=== PATIENT | female | born 1950 | race Caucasian/White ===

== ENCOUNTER 2018-05-19 15:19 | Inpatient (IN) | payer MEDICARE, MEDICAID ==
[2018-05-19] MEDS ORDERED: NITROGLYCERIN 2% OINTMENT 1 GM PACKET TP ONE (15:30)
--- NOTE | 2018-05-19 15:33 | ER Document Report ---
ED General - General Chief Complaint: Chest Pain Stated Complaint: CHEST PAIN Time Seen by Provider: 05/19/18 15:25 TRAVEL OUTSIDE OF THE [place] IN LAST 30 DAYS: No - HPI Notes: 67-year-old female with history of coronary artery disease, hypertension, high cholesterol, diabetes, family history of heart disease presents with sudden onset of central chest pressure while playing an online game around 2 PM. She reports associated nausea, diaphoresis, shortness of breath. Denies any similar pain in the past. Does have a history of esophageal dyskinesia and stricture and is awaiting esophageal dilatation. Patient had some improvement with nitroglycerin and aspirin by EMS, but pain is persistent. No cough or congestion. No fevers or leg swelling. 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 Past Medical History - Social History Smoking Status: Current Every Day Smoker Family History: Reviewed & Not Pertinent Review of Systems - Review of Systems Notes: Constitutional: Negative for fever. HENT: Negative for sore throat. Eyes: Negative for visual changes. Cardiovascular: Positive for chest pain. Respiratory: Positive for shortness of breath. Gastrointestinal: Negative for abdominal pain, vomiting or diarrhea. Positive for nausea Genitourinary: Negative for dysuria. Musculoskeletal: Negative for back pain. Skin: Negative for rash. Neurological: Negative for headaches, weakness or numbness. 10 point ROS negative except as marked above and in HPI. Physical Exam - Vital signs Vitals: Temp 98.4 F 05/19/18 15:24 - Notes Notes: PHYSICAL EXAMINATION: GENERAL: Well-appearing, well-nourished and in no acute distress. HEAD: Atraumatic, normocephalic. EYES: Pupils equal round and reactive to light, extraocular movements intact, conjunctiva are normal. ENT: nares patent, oropharynx clear without exudates. Moist mucous membranes. NECK: Normal range of motion, supple without lymphadenopathy LUNGS: Breath sounds clear to auscultation bilaterally and equal. No wheezes rales or rhonchi. HEART: Regular rate and rhythm, no chest wall tenderness ABDOMEN: Soft, nontender, normoactive bowel sounds. No guarding, no rebound. No masses appreciated. EXTREMITIES: Normal range of motion, no pitting or edema. No cyanosis. NEUROLOGICAL: Cranial nerves grossly intact. Normal speech, normal gait. Normal sensory and motor exams. PSYCH: Normal mood, normal affect. SKIN: Warm, Dry, normal turgor, no rashes or lesions noted. Course - Re-evaluation Re-evalutation: 05/19/18 17:14 Heart score of 6. First troponin normal. No ischemia on EKG. Discussed with hospitalist for admission. - Vital Signs Vital signs: Temp Pulse Resp BP Pulse Ox 98.4 F 05/19/18 15:24 - Laboratory Result Diagrams: 05/19/18 14:54 05/19/18 14:54 Laboratory results interpreted by me: 05/19/18 14:54 Chloride 109 H Creatinine 0.51 L Glucose 128 H Discharge - Discharge Clinical Impression: Chest pain Qualifiers: Chest pain type: unspecified Qualified Code(s): R07.9 - Chest pain, unspecified Condition: Stable Disposition: ADMITTED INPATIENT Admitting Provider: Hospitalist Unit Admitted: Telemetry
[2018-05-19 15:56] LABS: ABSOLUTE LYMPHOCYTES (AUTO) 2.4 10^3/uL (0.5-4.7); ABSOLUTE MONOCYTES (AUTO) 0.5 10^3/uL (0.1-1.4); ABSOLUTE NEUT (AUTO) 2.5 10^3/uL (1.7-8.2); BASOPHILS % (AUTO) 0.5 % (0-2); EOSINOPHILS % (AUTO) 0.4 % (0-6); HEMATOCRIT 37.4 % (36.0-47.0); HEMOGLOBIN 12.5 g/dL (12.0-15.5); MEAN CORPUSCULAR HEMOGLOBIN 29.7 pg (27.0-33.4); MEAN CORPUSCULAR HGB CONC 33.3 g/dL (32.0-36.0); MEAN CORPUSCULAR VOLUME 89 fl (80-97); MONOCYTES % (AUTO) 9.1 % (3-13); PLATELET COUNT 256 10^3/uL (150-450); RED CELL DISTRIBUTION WIDTH 13.8 % (11.5-14.0); TOTAL CELLS COUNTED % (AUTO) 100 %; WHITE BLOOD COUNT 5.5 10^3/uL (4.0-10.5)
--- NOTE | 2018-05-19 16:06 | RADIOLOGY REPORT (SQ) ---
EXAM DESCRIPTION: CHEST SINGLE VIEW COMPLETED DATE/TIME: 05/19/2018 3:55 pm REASON FOR STUDY: chest pain COMPARISON: None. EXAM PARAMETERS: NUMBER OF VIEWS: One view. TECHNIQUE: Single frontal radiographic view of the chest acquired. RADIATION DOSE: NA LIMITATIONS: None. FINDINGS: LUNGS AND PLEURA: No opacities, masses or pneumothorax. No pleural effusion. MEDIASTINUM AND HILAR STRUCTURES: No masses. Contour normal. HEART AND VASCULAR STRUCTURES: Heart normal in size. Normal vasculature. BONES: No acute findings. HARDWARE: None in the chest. OTHER: No other significant finding. IMPRESSION: NO ACUTE RADIOGRAPHIC FINDING IN THE CHEST. TECHNICAL DOCUMENTATION: JOB ID: [id number] [employer]- All Rights Reserved Reading location - IP/workstation name: [email or web address]
[2018-05-19 16:15] LABS: ALANINE AMINOTRANSFERASE 24 U/L (9-52); ALBUMIN 4.1 g/dL (3.5-5.0); ALKALINE PHOSPHATASE 64 U/L (38-126); ANION GAP 8 (5-19); ASPARTATE AMINO TRANSFERASE 22 U/L (14-36); BILIRUBIN,DIRECT 0.3 mg/dL (0.0-0.4); BILIRUBIN,TOTAL 0.5 mg/dL (0.2-1.3); BLOOD UREA NITROGEN 11 mg/dL (7-20); CALCIUM 9.4 mg/dL (8.4-10.2); CARBON DIOXIDE 24 mmol/L (22-30); CHLORIDE 109 mmol/L (98-107); GLUCOSE 128 mg/dL (75-110); POTASSIUM 4.1 mmol/L (3.6-5.0); SODIUM 140.5 mmol/L (137-145); TOTAL PROTEIN 7.1 g/dL (6.3-8.2)
[2018-05-19 16:17] LABS: LIPASE 56.8 U/L (23-300)
[2018-05-19] MEDS ORDERED: MORPHINE SULFATE 10 MG/ML INJ IV ONE (17:18)
[2018-05-19] MEDS ORDERED: TEMAZEPAM 15 MG CAPSULE PO PRN (17:36)
[2018-05-19] MEDS ORDERED: ONDANSETRON 4 MG TAB.RAPDIS PO PRN (17:36)
[2018-05-19] MEDS ORDERED: MAG HYDROX/AL HYDROX/SIMETH SUSP 30 ML UDCUP PO PRN (17:36)
[2018-05-19] MEDS ORDERED: MAGNESIUM HYDROXIDE SUSP 30 ML UDCUP PO PRN (17:36)
[2018-05-19] MEDS ORDERED: ACETAMINOPHEN 325 MG TABLET PO PRN (17:36)
[2018-05-19] MEDS: DOCUSATE SODIUM 100 MG CAPSULE PO SCH (18:35)
--- NOTE | 2018-05-19 19:50 | EKG REPORT ---
SEVERITY:- ABNORMAL ECG - SINUS RHYTHM NONSPECIFIC ANTERIOR ST-T CHANGES : Confirmed by: Sky Lee MD 19-May-2018 19:49:49
[2018-05-19] MEDS ORDERED: FAMOTIDINE 20 MG TABLET PO SCH (20:00)
--- NOTE | 2018-05-19 20:29 | PDOC H&P ---
History of Present Illness Admission Date/PCP: 05/19/18 17:21 Patient complains of: Chest pain History of Present Illness: RICHA ANDRADE is a 67 year old female who presented to the emergency room with a history of chest pain beginning just a few minutes prior to her arrival. She states that she was playing find a hidden object on her computer when she suddenly developed a severe, crushing, substernal, chest pain without radiation but accompanied by nausea diaphoresis and dyspnea while at rest. The pain remained constant and she subsequently called the EMS to bring her to the hospital. En route she was given nitroglycerin 3 and she chewed 4 baby aspirin , which provided some relief of her discomfort. She did not identify any other aggravating or alleviating factors. She denies having prior similar episodes but does have a history of chronic dysphagia secondary to esophageal stricturing. She also gives a history of hypertension, hyperlipidemia, coronary artery disease, and diabetes. She has a family history strongly positive for coronary artery disease. Past Medical History Cardiac Medical History: Reports: Hyperlipidema, Hypertension Pulmonary Medical History: Reports: Chronic Obstructive Pulmonary Disease (COPD) , Other - Current cigarette smoker EENT Medical History: Reports: Other - Chronic dysphagia with esophageal stricture Neurological Medical History: Reports: None Endocrine Medical History: Reports: Diabetes Mellitus Type 2 Renal/ Medical History: Reports: None Malignancy Medical History: Reports: None GI Medical History: Reports: Gastroesophageal Reflux Disease Musculoskeltal Medical History: Reports: None Skin Medical History: Reports: None Psychiatric Medical History: Reports: None Traumatic Medical History: Reports: None Hematology: Reports: None Infectious Medical History: Reports: None Past Surgical History Past Surgical History: Reports: Appendectomy, Section - x1 Social History Information Source: Patient Lives with: Family Smoking Status: Current Every Day Smoker Frequency of Alcohol Use: None Hx Recreational Drug Use: No Hx Prescription Drug Abuse: No Family History Family History: CAD, DM, Hypertension Parental Family History Reviewed: Yes - CAD, DM, HTN Children Family History Reviewed: Yes Sibling(s) Family History Reviewed.: Yes Medication/Allergy Allergies/Adverse Reactions: metoclopramide [From Reglan] Allergy (Verified 05/19/18 18:40) morphine Allergy (Verified 05/19/18 17:53) Sulfa (Sulfonamide Antibiotics) Allergy (Verified 05/19/18 18:40) Review of Systems Constitutional: PRESENT: fatigue. ABSENT: chills, fever(s) Eyes: PRESENT: other - No conjunctival discharge or scleral icterus. ABSENT: visual disturbances Ears: PRESENT: other - No drainage from the ear canals. ABSENT: hearing changes Nose, Mouth, and Throat: ABSENT: mouth pain, sore throat, vertigo Cardiovascular: PRESENT: chest pain, other - Diaphoresis dyspnea at rest. ABSENT: edema, orthropnea, palpitations Respiratory: PRESENT: dyspnea. ABSENT: cough, hemoptysis Gastrointestinal: PRESENT: dysphagia, heartburn, nausea. ABSENT: abdominal pain , bloating, constipation, diarrhea, hematemesis, hematochezia, melena, vomiting Genitourinary: ABSENT: difficulty urinating, dysuria, hematuria, nocturia Musculoskeletal: ABSENT: back pain, deformity, joint swelling, muscle weakness Integumentary: PRESENT: diaphoresis. ABSENT: erythema, pruritus, rash, wounds Neurological: PRESENT: weakness. ABSENT: confusion, dizziness, focal weakness, memory loss Psychiatric: ABSENT: anxiety, depression, hallucinations Endocrine: ABSENT: cold intolerance, flushing, heat intolerance, polydipsia, polyphagia, polyuria Hematologic/Lymphatic: ABSENT: easy bleeding, easy bruising Allergic/Immunologic: PRESENT: other - Denies frequent viral illnesses. ABSENT : seasonal rhinorrhea Physical Exam Vital Signs: Temp Pulse Resp BP Pulse Ox 98.4 F 14 135/58 H 98 05/19/18 15:24 05/19/18 18:32 05/19/18 17:01 05/19/18 18:32 General appearance: PRESENT: cooperative, mild distress - Due to chest pain 5-6/ 10 Head exam: PRESENT: atraumatic, normocephalic Eye exam: PRESENT: conjunctiva pink. ABSENT: nystagmus, scleral icterus Ear exam: PRESENT: normal external ear exam. ABSENT: bleeding, drainage Mouth exam: PRESENT: moist, neck supple, tongue midline Neck exam: PRESENT: full ROM. ABSENT: JVD, tenderness, tracheal deviation Respiratory exam: PRESENT: clear to auscultation daniel, symmetrical, unlabored Cardiovascular exam: PRESENT: bradycardia, RRR. ABSENT: clicks, diastolic murmur, gallop, rubs, systolic murmur Pulses: PRESENT: normal radial pulses, normal dorsalis pedis pul Vascular exam: PRESENT: normal capillary refill GI/Abdominal exam: PRESENT: normal bowel sounds, soft. ABSENT: distended, tenderness Rectal exam: PRESENT: deferred Extremities exam: ABSENT: calf tenderness, clubbing, joint swelling, pedal edema Musculoskeletal exam: PRESENT: full ROM, normal inspection Neurological exam: PRESENT: alert, awake, oriented to person, oriented to place , oriented to time, oriented to situation, CN II-XII grossly intact. ABSENT: motor sensory deficit Psychiatric exam: PRESENT: appropriate affect, normal mood Skin exam: ABSENT: jaundice, rash, urticaria Results Laboratory Results: Laboratory 05/19/18 05/19/18 05/19/18 14:54 14:54 14:54 WBC 5.5 RBC 4.20 Hgb 12.5 Hct 37.4 MCV 89 MCH 29.7 MCHC 33.3 RDW 13.8 Plt Count 256 Seg Neutrophils % 46.0 Lymphocytes % 44.0 Monocytes % 9.1 Eosinophils % 0.4 Basophils % 0.5 Absolute Neutrophils 2.5 Absolute Lymphocytes 2.4 Absolute Monocytes 0.5 Absolute Eosinophils 0.0 Absolute Basophils 0.0 Sodium 140.5 Potassium 4.1 Chloride 109 H Carbon Dioxide 24 Anion Gap 8 BUN 11 Creatinine 0.51 L Est GFR ( Amer) > 60 Est GFR (Non-Af Amer) > 60 Glucose 128 H Calcium 9.4 Total Bilirubin 0.5 Direct Bilirubin 0.3 Neonat Total Bilirubin Not Reportable Neonat Direct Bilirubin Not Reportable Neonat Indirect Bili Not Reportable AST 22 ALT 24 Alkaline Phosphatase 64 Troponin I < 0.012 Total Protein 7.1 Albumin 4.1 Lipase 56.8 EKG Comments: Sinus bradycardia with nonspecific ST changes noted. No evidence of coronary ischemia or acute cardiac injury noted. Impressions: Chest X-Ray 05/19/18 15:30 IMPRESSION: NO ACUTE RADIOGRAPHIC FINDING IN THE CHEST. Status: Image reviewed by me Assessment & Plan - Diagnosis (1) Benign essential HTN Is this a current diagnosis for this admission?: Yes Plan: Continue current home therapeutic regiment as the initial point of therapy. 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 (4) Smoker Is this a current diagnosis for this admission?: Yes Plan: Recommended smoking cessation, counseling has been given. 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 (6) CAD (coronary artery disease), [place] coronary artery Is this a current diagnosis for this admission?: Yes Plan: Serial cardiac enzymes to evaluate chest pain, cardiology consultation due to history of multiple small vessel disease. (7) Chest pain Qualifiers: Chest pain type: unspecified Qualified Code(s): R07.9 - Chest pain, unspecified Is this a current diagnosis for this admission?: Yes Plan: Provide symptomatic and supportive care to give pain relief. Check serial cardiac enzymes and EKGs. Obtain cardiology consultation. - Time Time Spent: Greater than 70 Minutes Smoking Cessation Education: 3 to 10 minutes Medications reviewed and adjusted accordingly: Yes Anticipated discharge: Home Within: within 72 hours
[2018-05-19] MEDS ORDERED: KETOROLAC TROMETHAMINE INJ/PF 30 MG/1 ML SDV IV ONE (20:30)
[2018-05-19] MEDS ORDERED: HEPARIN SOD (PORCINE) 5,000 UNIT/ML 1 ML SYRINGE SUBCUT SCH (22:00)
[2018-05-19 22:10] LABS: CREATINE KINASE MB 0.35 ng/mL (<4.55); TROPONIN I < 0.012 ng/mL
[2018-05-19] MEDS: HYDROMORPHONE HCL INJ/PF 2 MG/ML AMPULE IV PRN (22:54)
[2018-05-19] MEDS ORDERED: INSULIN DETEMIR 100 UNIT/ML 3 ML PEN SUBCUT ONE (23:15)
[2018-05-20] MEDS ORDERED: PANTOPRAZOLE SODIUM 40 MG VIAL IV ONE (00:45)
[2018-05-20] MEDS ORDERED: MAG HYDROX/AL HYDROX/SIMETH SUSP 30 ML UDCUP PO ONE (01:00)
[2018-05-20] MEDS ORDERED: LIDOCAINE 2% VISCOUS SOLN 20 ML UDCUP PO ONE (01:00)
[2018-05-20] MEDS ORDERED: LIDOCAINE 2% VISCOUS SOLN 20 ML UDCUP ONE (01:09)
[2018-05-20] MEDS ORDERED: INSULIN DETEMIR 100 UNIT/ML 3 ML PEN SUBCUT ONE (01:09)
[2018-05-20] MEDS ORDERED: METOCLOPRAMIDE HCL ORAL SOLN 10 MG/10 ML UDCUP ONE (01:09)
[2018-05-20] MEDS: METOCLOPRAMIDE HCL ORAL SOLN 10 MG/10 ML UDCUP PO ONE ×2 (01:17→01:32)
[2018-05-20] MEDS: HYDROMORPHONE HCL INJ/PF 2 MG/ML AMPULE IV PRN ×2 (02:46→09:42)
[2018-05-20 04:10] LABS: HEMOGLOBIN 12.3 g/dL (12.0-15.5); RED CELL DISTRIBUTION WIDTH 13.7 % (11.5-14.0)
--- NOTE | 2018-05-20 08:26 | EKG REPORT ---
SEVERITY:- ABNORMAL ECG - SINUS BRADYCARDIA 51/MIN REPOL ABNRM SUGGESTS ISCHEMIA, LATERAL LEADS BORDERLINE PROLONGED QT INTERVAL : Confirmed by: Sky Lee MD 20-May-2018 07:38:21
--- NOTE | 2018-05-20 08:26 | EKG REPORT ---
SEVERITY:- BORDERLINE ECG - SINUS BRADYCARDIA LOW VOLTAGE THROUGHOUT : Confirmed by: Sky Lee MD 20-May-2018 07:36:55
[2018-05-20 09:21] LABS: HEMATOCRIT 37.3 % (36.0-47.0); MEAN CORPUSCULAR HEMOGLOBIN 29.2 pg (27.0-33.4); MEAN CORPUSCULAR HGB CONC 32.9 g/dL (32.0-36.0); MEAN CORPUSCULAR VOLUME 89 fl (80-97); PLATELET COUNT 228 10^3/uL (150-450)
[2018-05-20 09:30] LABS: BLOOD UREA NITROGEN 13 mg/dL (7-20); CALCIUM 9.1 mg/dL (8.4-10.2); CREATINE KINASE 39 U/L (30-135); CREATINE KINASE MB 0.63 ng/mL (<4.55); DIRECT LDL 54 mg/dL (<100); GLUCOSE 74 mg/dL (75-110); POTASSIUM 4.2 mmol/L (3.6-5.0); TRIGLYCERIDES 172 mg/dL (<150); VLDL CHOLESTEROL 34.4 mg/dL (10-31)
[2018-05-20] MEDS ORDERED: LEVOTHYROXINE SODIUM 0.1 MG TABLET PO SCH (09:30)
--- NOTE | 2018-05-20 09:32 | XCELERA REPORT ---
[address] [address] Transthoracic Echocardiogram Report Name: RICHA ANDRADE Age: 67 yrs Gender: Female : 1950 Patient Status: Inpatient Patient Location: [place] [address]^A Study Date: 05/19/2018 07:49 PM Height: 62 in Weight: 160 lb BSA: 1.7 m2 Procedure: A complete two-dimensional transthoracic echocardiogram was performed (2D, M-mode, spectral and color flow Doppler). The study was technically adequate with some images being suboptimal in quality. Reason For Study: Chest pain Ordering Physician: RHINA LIZ Performed By: Yoli Tapia Interpretation Summary The left ventricular ejection fraction is normal. There is mild concentric left ventricular hypertrophy. The left ventricle is grossly normal size. Doppler measurements suggest pseudonormalized left ventricular relaxation, which is associated with grade II/IV or mild to moderate diastolic dysfunction Wall motion cannot be accurately commented on, but no definite regional wall motion abnormalities noted. The right ventricular systolic function is normal. The right ventricle is mildly dilated. The right ventricle appears to be hypertrophied The right atrium is mildly dilated. The left atrial size is normal. There is a trace amount of mitral regurgitation There is no mitral valve stenosis. There is no aortic valve stenosis There is a mild amount of aortic regurgitation There is a trace to mild amount of tricuspid regurgitation There is mild pulmonary hypertension by echo Right ventricular systolic pressure is estimated to be elevated at 30-40mmHg. The aortic root is not well visualized but is probably normal size. The inferior vena cava appeared normal and decreased > 50% with respiration (RAP 5-10 mmHg) There is no pericardial effusion. MMode/2D Measurements & Calculations RVDd: 2.8 cm LVIDd: 4.5 cm FS: 34.9 % Ao root diam: 2.8 cm IVSd: 0.98 cm LVIDs: 3.0 cm EDV(Teich): 94.7 ml Ao root area: 6.0 cm2 LVPWd: 0.96 cm ESV(Teich): 33.8 ml LA dimension: 2.9 cm EF(Teich): 64.3 % Doppler Measurements & Calculations MV E max dorian: MV P1/2t max dorian: Ao V2 max: AI max dorian: 67.1 cm/sec 73.0 cm/sec 97.0 cm/sec 190.8 cm/sec MV A max dorian: MV P1/2t: 69.8 msec Ao max PG: AI max P.6 cm/sec MVA(P1/2t): 3.2 cm2 3.8 mmHg 14.6 mmHg MV E/A: 1.0 MV dec slope: AI dec slope: 86.2 cm/sec2 306.3 cm/sec2 AI P1/2t: MV dec time: 0.25 sec 648.3 msec LV V1 max PG: PA V2 max: TR max dorian: AV P1/2t-pr_phl: 2.7 mmHg 87.6 cm/sec 241.3 cm/sec 648.3 msec LV V1 max: PA max P.1 mmHg TR max P.9 cm/sec 23.3 mmHg MV P1/2t-pr_phl: 69.8 msec Left Ventricle The left ventricle is grossly normal size. There is mild concentric left ventricular hypertrophy. The left ventricular ejection fraction is normal. Doppler measurements suggest pseudonormalized left ventricular relaxation, which is associated with grade II/IV or mild to moderate diastolic dysfunction. Wall motion cannot be accurately commented on, but no definite regional wall motion abnormalities noted. Right Ventricle The right ventricle is mildly dilated. The right ventricle appears to be hypertrophied. The right ventricular systolic function is normal. Atria The right atrium is mildly dilated. The left atrial size is normal. Interarterial septum not well visualized and not well dopplered. Cannot comment on ASD/PFO presence. Mitral Valve The mitral valve is grossly normal. There is no mitral valve stenosis. There is a trace amount of mitral regurgitation. Aortic Valve The aortic valve is grossly normal. There is no aortic valve stenosis. There is a mild amount of aortic regurgitation. Tricuspid Valve The tricuspid valve is not well visualized, but is grossly normal. There is no tricuspid stenosis. There is a trace to mild amount of tricuspid regurgitation. There is mild pulmonary hypertension by echo. Right ventricular systolic pressure is estimated to be elevated at 30-40mmHg. Pulmonic Valve The pulmonic valve is not well visualized. Great Vessels The aortic root is not well visualized but is probably normal size. The inferior vena cava appeared normal and decreased > 50% with respiration (RAP 5-10 mmHg). Effusions There is no pericardial effusion. : RHINA LIZ > Rhina Liz
[2018-05-20] MEDS: DOCUSATE SODIUM 100 MG CAPSULE PO SCH (09:48)
[2018-05-20] MEDS: PANTOPRAZOLE SODIUM 40 MG VIAL IV SCH ×2 (09:49→11:25)
[2018-05-20 09:50] LABS: TROPONIN I < 0.012 ng/mL
[2018-05-20 11:35] LABS: CREATINE KINASE MB 0.69 ng/mL (<4.55)
[2018-05-20 11:37] LABS: TROPONIN I < 0.012 ng/mL
[2018-05-20 11:41] LABS: ANION GAP 6 (5-19); CARBON DIOXIDE 24 mmol/L (22-30); CHLORIDE 111 mmol/L (98-107)
--- NOTE | 2018-05-20 11:46 | RADIOLOGY REPORT (SQ) ---
EXAM DESCRIPTION: CTA CHEST COMPLETED DATE/TIME: 05/20/2018 11:29 am REASON FOR STUDY: Chest pain, RV enlargement COMPARISON: AP chest 05/19/2018 TECHNIQUE: CT scan of the chest performed using helical scanning technique with dynamic intravenous contrast injection. Images reviewed with lung, soft tissue and bone windows. Reconstructed coronal and sagittal MPR images reviewed. Additional 3 dimensional post-processing performed to develop Maximal Intensity Projection images (KS P). All images stored on PACS. All CT scanners at this facility use dose modulation, iterative reconstruction, and/or weight based d osing when appropriate to reduce radiation dose to as low as reasonably achievable (ALARA). [facility]: Dose Right [facility]: CareDose [facility]: Dose Right [facility]: Teradose 4D [facility]: navigaya CONTRAST TYPE AND DOSE: contrast/concentration: Isovue 350.00 mg/ml; Total Contrast Delivered: 63.0 ml; Total Saline Delivered: 108.0 ml Contrast bolus optimized for the pulmonary arteries. Not diagnostic for the aorta. RENAL FUNCTION: Creatinine 0.5 RADIATION DOSE: CT Rad equipment meets quality standard of care and radiation dose reduction techniq ues were employed. CTDIvol: 11.1 - 13.2 mGy. DLP: 421 mGy-cm. . LIMITATIONS: None. FINDINGS: LUNGS AND PLEURA: Mild obstructive lung disease with enlarged airspaces in the upper lobes . No acute infiltrates. No pleural effusion or pneumothorax. No worrisome pulmonary nodules. AORTA AND GREAT VESSELS: No aneurysm. Heavy calcification at the origin of the left common carotid a rtery with at least 50% diameter stenosis at its origin HEART: No pericardial effusion. Mild left coronary artery calcifications, moderate right coronary art conrado calcifications. PULMONARY ARTERIES: No emboli visualized in the main pulmonary arteries or the segmental branches. HILAR AND MEDIASTINAL STRUCTURES: Tiny hiatal hernia. No adenopathy HARDWARE: None in the chest. UPPER ABDOMEN: No significant findings. Limited exam. THYROID AND OTHER SOFT TISSUES: No masses. No adenopathy. BONES: No acute or significant finding. 3D MIPS: Confirm above findings. OTHER: No other significant finding. IMPRESSION: Obstructive lung disease. No acute pulmonary emboli. Left common carotid origin calcifications, left and right coronary artery calcifications COMMENT: Quality ID # [id number]: Final reports with documentation of one or more dose reduction techniques (e.g., Automated exposure control, adjustment of the mA and/or kV according to patient size, use of iterative reconstruction technique) TECHNICAL DOCUMENTATION: JOB ID: [id number] [employer]- All Rights Reserved Reading location - IP/workstation name: [id number]
[2018-05-20] MEDS ORDERED: FUROSEMIDE 40 MG TABLET PO PRN (12:13)
[2018-05-20] MEDS ORDERED: ALBUTEROL SULFATE HFA (90 MCG/PUFF) 200 PUFF/8.5 GM MDI IH PRN (12:30)
[2018-05-20 13:02] VITALS: BP 136/47
[2018-05-20] MEDS ORDERED: PYRIDOSTIGMINE BROMIDE 60 MG TABLET PO SCH (14:00)
[2018-05-20] MEDS ORDERED: INSULIN LISPRO 100 UNIT/ML 3 ML VIAL SUBCUT SCH (14:00)
[2018-05-20] MEDS ORDERED: INSULIN LISPRO 10 UNIT SQ SCH (14:00)
[2018-05-20] MEDS ORDERED: LORAZEPAM 1 MG TABLET PO SCH (14:00)
[2018-05-20] MEDS ORDERED: (PENDING PHARMACY ID) (Azelastine Hcl [Azelastine Hcl] 1 SPRAY) NAREB SCH (18:00)
[2018-05-20] MEDS ORDERED: (PENDING PHARMACY ID) (Esomeprazole Magnesium [Esomeprazole Magnesium] 40 MG) PO SCH (18:00)
[2018-05-20] MEDS ORDERED: LANSOPRAZOLE 30 MG TAB.RAP.DR PO SCH (18:00)
[2018-05-20] MEDS ORDERED: SUCRALFATE 1 GM TABLET PO SCH (18:00)
--- NOTE | 2018-05-20 20:22 | PDOC CONSULTATION ---
Consultation Consult Date: 05/19/18 Attending physician:: JOYCE GABRIEL Consult reason:: Chest pain History of Present Illness Admission Date/PCP: 05/19/18 17:21 Patient complains of: Chest pain History of Present Illness: Patient was seen in the emergency room at around 8:15 PM yesterday that is May 19. RICHA ANDRADE is a 67 year old female who presented to the emergency room with a history of chest pain beginning just a few minutes prior to her arrival. She states that she was playing find a hidden object on her computer when she suddenly developed a severe, crushing, substernal, chest pain without radiation but accompanied by nausea diaphoresis and dyspnea while at rest. The pain remained constant and she subsequently called the EMS to bring her to the hospital. En route she was given nitroglycerin 3 and she chewed 4 baby aspirin , which provided some relief of her discomfort. She did not identify any other aggravating or alleviating factors. She denies having prior similar episodes but does have a history of chronic dysphagia secondary to esophageal stricturing. She also gives a history of hypertension, hyperlipidemia, coronary artery disease, and diabetes. She has a family history strongly positive for coronary artery disease. Patient claims that her chest pain started while playing a computer game to find hidden object to improve her eyesight as she has some macular problems. Patient describes her primary care social psychologist is Dr. Jocelin Sánchez in . Past Medical History Cardiac Medical History: Reports: Hyperlipidema, Hypertension Pulmonary Medical History: Reports: Chronic Obstructive Pulmonary Disease (COPD) , Other - Current cigarette smoker EENT Medical History: Reports: Other - Chronic dysphagia with esophageal stricture Neurological Medical History: Reports: None Endocrine Medical History: Reports: Diabetes Mellitus Type 2 Renal/ Medical History: Reports: None Malignancy Medical History: Reports: None GI Medical History: Reports: Gastroesophageal Reflux Disease Musculoskeltal Medical History: Reports: None Skin Medical History: Reports: None Psychiatric Medical History: Reports: None Traumatic Medical History: Reports: None Hematology: Reports: None, Other - Chronic dysphagia with esophageal stricture Infectious Medical History: Reports: None Past Surgical History Past Surgical History: Reports: Appendectomy, Section - x1 Social History Information Source: Patient Lives with: Family Smoking Status: Former Smoker Cigarettes Packs Per Day: 0.5 Number of Years Smokin Last Time Smoked: 2009 Frequency of Alcohol Use: None Hx Recreational Drug Use: No Hx Prescription Drug Abuse: No - Advance Directive Resuscitation Status: Full Code Surrogate healthcare decision maker:: Patient's is the surrogate decision-maker er Family History Family History: CAD, DM, Hypertension Parental Family History Reviewed: Yes Children Family History Reviewed: Yes Sibling(s) Family History Reviewed.: Yes Medication/Allergy Home Medications: Albuterol Sulfate [Proair HFA] 2 puff IH Q6HP PRN 05/19/18 Aspirin [Aspirin EC] 81 mg PO DAILY 05/19/18 Budesonide/Formoterol Fumarate [Symbicort 160-4.5 Mcg Inhaler] 2 puff IH Q12 01/29 Cholecalciferol (Vitamin D3) [Vitamin D3] 4,000 unit PO DAILY 05/19/18 Escitalopram Oxalate 10 mg PO QHS 05/19/18 Esomeprazole Magnesium 40 mg PO BID 05/19/18 Fluticasone Propionate [Flonase Nasal [place] 50 Mcg/[place] 16 gm] 2 sprays NAREB DAILY 05/19/18 Glimepiride 4 mg PO DAILY 05/19/18 Isosorbide Mononitrate [Ismo 20 Mg Tablet] 20 mg PO Q12 05/19/18 Levothyroxine Sodium 88 mcg PO Q6AM 05/19/18 Lorazepam 1 mg PO TID 05/19/18 Metoprolol Succinate 50 mg PO DAILY 05/19/18 Pyridostigmine [place] 60 mg PO TID 05/19/18 Ranitidine HCl 300 mg PO QHS 05/19/18 Rosuvastatin Calcium 40 mg PO QHS 05/19/18 Sucralfate [Carafate 1 gm Tablet] 2 gm PO BID 05/19/18 Azelastine HCl [Azelastine HCl] 1 spray NAREB BID 05/20/18 Furosemide [Lasix 40 mg Tablet] 40 mg PO QAMP PRN 05/20/18 Insulin Glargine,Hum.rec.anlog [Lantus Solostar] 46 unit SQ QHS 05/20/18 Insulin Lispro [Humalog Kwikpen] 10 unit SQ TID 05/20/18 Linaclotide [Linzess] 290 mcg PO Q6AM 05/20/18 Magnesium Oxide [Mag-Ox 400 mg Tablet] 800 mg PO QHS 05/20/18 Allergies/Adverse Reactions: metoclopramide [From Reglan] Allergy (Verified 05/19/18 18:40) morphine Allergy (Verified 05/19/18 17:53) Sulfa (Sulfonamide Antibiotics) Allergy (Verified 05/19/18 18:40) Review of Systems Review of Systems: Please see history of present illness and past medical history as wall. Constitutional: No fever or chills reported. Head : No recent chronic headaches, recent head injury. Eyes: No recent eye pain, diplopia, redness, discharge, acute visual changes. Ears: No recent chronic ear pain, acute hearing loss, ear discharge. Oral cavity: No recent ulcerations, bleeding, oral cavity discomfort. Neck: No recent acute neck pain reported. Hematologic: No recent easy bruising or bleeding. Lymphatic: No recent lymph node enlargement reported. Cardiovascular system review: See history of present illness. Respiratory system review: No hemoptysis or blood clots in the lungs reported. Shortness of breath on exertion Gastrointestinal system review: Negative for any recent acute hematemesis, melena. Genitourinary system review: No recent acute or chronic hematuria, flank pain, UTI etc. reported. Skin system review: Negative for any recent abnormal bruising, no rash, no pruritus reported. Neurologic: No prior history of strokes, mini strokes, seizure disorder. Psychologic: No history of major psychosis or major depression reported. Musculoskeletal: aches and pains reported. No acute joint swelling reported. Endocrine: No recent polyuria, polydipsia, recent heat or cold intolerance. Physical Exam Vital Signs: Temp Pulse Resp BP Pulse Ox 98.2 F 47 L 17 136/47 H 98 05/20/18 12:59 05/20/18 12:59 05/20/18 12:59 05/20/18 12:59 05/20/18 12:59 Intake & Output 05/19/18 05/20/18 05/21/18 06:59 06:59 06:59 Intake Total 240 Output Total 0 Balance 240 Weight 74.1 kg Exam: GENERAL: well-nourished and in no acute distress. Alert and oriented x3 HEAD: Atraumatic, normocephalic. EYES: Pupils equal round and reactive to light, extraocular movements intact, sclera anicteric, conjunctiva are normal. ENT: TMs normal, nares patent, oropharynx clear without exudates. Moist mucous membranes. No oral ulcerations or bleeding gums noted NECK: supple without lymphadenopathy. Trachea is central. No cervical or axillary lymphadenopathy noted. Carotids are 2+, JVD WNL LUNGS: Respiration seems nonlabored, no significant accessory muscle action noted. Breath sounds clear to auscultation bilaterally and equal noted. No wheezes rales or rhonchi noted. No significant dullness noted on percussion. CHEST: Palpation of the chest wall shows no significant chest wall tenderness. 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 ABDOMEN: Soft, no significant tenderness appreciated, normoactive bowel sounds. No guarding, no rebound. No rigidity noted . No masses appreciated. EXTREMITIES: Pedal pulses are 1-2+, no calf tenderness noted. No clubbing or cyanosis. negative pedal edema noted NEUROLOGICAL: Focused neurological exam showed no significant neurologic deficit. Normal speech, no focal weakness appreciated. PSYCH: Normal mood, normal affect. Judgment and insight within normal limits. SKIN: No significant ecchymosis, skin is noted to be warm. MUSCULOSKELETAL EXAM: No significant acute joint swelling noted. Results Laboratory Results: 05/20/18 03:56 05/20/18 03:56 05/20/18 05/20/18 05/20/18 03:56 03:56 03:56 WBC 6.0 RBC 4.20 Hgb 12.3 Hct 37.3 MCV 89 MCH 29.2 MCHC 32.9 RDW 13.7 Plt Count 228 Sodium 141.0 Potassium 4.2 Chloride 111 H Carbon Dioxide 24 Anion Gap 6 BUN 13 Creatinine 0.71 Est GFR ( Amer) > 60 Est GFR (Non-Af Amer) > 60 Glucose 74 L Calcium 9.1 Magnesium 1.6 Triglycerides 172 H Cholesterol 122.90 LDL Cholesterol Direct 54 VLDL Cholesterol 34.4 H HDL Cholesterol 38 L TSH 3.65 05/19/18 05/19/18 05/20/18 21:38 21:38 03:56 Creatine Kinase 30 CK-MB (CK-2) 0.35 0.63 Troponin I < 0.012 < 0.012 NT-Pro-B Natriuret Pep 05/20/18 05/20/18 05/20/18 03:56 03:56 10:26 Creatine Kinase 39 41 CK-MB (CK-2) Troponin I Cancelled NT-Pro-B Natriuret Pep 217 05/20/18 10:26 Creatine Kinase CK-MB (CK-2) 0.69 Troponin I < 0.012 NT-Pro-B Natriuret Pep EKG Comments: Sinus rhythm, no acute ST-T wave changes are noted. Impressions: Chest X-Ray 05/19/18 15:30 IMPRESSION: NO ACUTE RADIOGRAPHIC FINDING IN THE CHEST. Chest/Abdomen CTA 05/20/18 09:32 IMPRESSION: Obstructive lung disease. No acute pulmonary emboli. Left common carotid origin calcifications, left and right coronary artery calcifications Assessment & Plan - Diagnosis (1) Chest pain Qualifiers: Chest pain type: unspecified Qualified Code(s): R07.9 - Chest pain, unspecified Is this a current diagnosis for this admission?: Yes (2) Benign essential HTN Is this a current diagnosis for this admission?: Yes (3) CAD (coronary artery disease), [place] coronary artery Qualifiers: [place] vs. transplanted heart: [place] heart Associated angina: angina presence unspecified Qualified Code(s): I25.10 - Atherosclerotic heart disease of [place] coronary artery without angina pectoris Is this a current diagnosis for this admission?: Yes (4) DM II (diabetes mellitus, type II), controlled Qualifiers: Diabetes mellitus [facility] insulin use: without long term acute care registered nurse use Diabetes mellitus complication status: without complication Qualified Code(s): E11.9 - Type 2 diabetes mellitus without complications Is this a current diagnosis for this admission?: Yes (5) HLD (hyperlipidemia) Qualifiers: Hyperlipidemia type: unspecified Qualified Code(s): E78.5 - Hyperlipidemia , unspecified Is this a current diagnosis for this admission?: Yes (6) History of esophageal stricture Is this a current diagnosis for this admission?: Yes (7) Smoker Is this a current diagnosis for this admission?: Yes - Notes Notes: Chest pain: Various differential diagnosis discussed. There is intermediate probability that chest pain is from cardiac ischemia. This is based on patient' s risk factors, age etc. Discussed that at this point we should continue with ruling out protocol, with serial EKGs and enzymes. Once stabilized will consider a nuclear stress test. A 2D echocardiogram was also ordered. Patient was agreeable with this approach. Hypertension: Reasonably well controlled. Blood pressure goal in this patient is 135/85 or less. This was discussed with the patient. Currently blood pressure under reasonable control. Better medication for this patient are PATRICIA inhibitor/ARB/beta adelita etc. discussed side effects of uncontrolled hypertension and also severe hypotension. Diabetes: Recommend good control of blood sugar. However should avoid any hypoglycemia and hyperglycemia. Patient being expertly managed by primary care M.D/hospitalist Hyperlipidemia: LDL goal is less than 70. Recommend statin therapy at least intermediate or high dose, of high potency status. Periodic lipid panel and liver panel is indicated. Patient to report any significant muscle discomfort or other side effects. History of esophageal reflux and stricture: Patient started on Pepcid therapy will continue with it but may be better to do use proton pump inhibitor. Tobacco abuse: Patient has been advised to quit smoking. - Time Time Spent: 30 to 50 Minutes - CODE STATUS was discussed, patient remains full code. Surrogate decision-maker unchanged. Multiple medical problems were addressed. More than 50% of the time spent coordinating care, discussing management plans with involved caregivers. Management plans discussed with involved personnels. Medical decision making was of moderate to high complexity , patient's has multiple comorbidities. Medications reviewed and adjusted accordingly: Yes
--- NOTE | 2018-05-20 20:30 | PDOC PROGRESS REPORT ---
Subjective Progress Note for:: 05/20/18 Subjective:: Patient continues with intermittent chest pain. Nurse called me that she was having 2 out of 5 chest pain. She was also noted to be significantly bradycardic. Patient was also noted to be is mildly diaphoretic. She denied any nausea or vomiting. 2D echo was reviewed. It showed RV enlargement and RV hypertrophy. [place] that acute pulmonary embolism would need to be ruled out as patient does have some risk factors. It was therefore ordered. Patient however expressed desire to be transferred to [facility] which I told the nurse that this is not an unreasonable request. Patient will most likely end up needing a heart catheterization and or pacemaker. Nurse was asked to get in touch with the hospitalist. In the meantime, I wrote orders for IV Protonix, a stat EKG and cardiac enzymes which subsequently came back negative. Reason For Visit: CHEST PAIN REQUIRING NTG X 3 FOR RESOLUTION Physical Exam Vital Signs: Temp Pulse Resp BP Pulse Ox 98.2 F 47 L 17 136/47 H 98 05/20/18 12:59 05/20/18 12:59 05/20/18 12:59 05/20/18 12:59 05/20/18 12:59 Intake & Output 05/19/18 05/20/18 05/21/18 06:59 06:59 06:59 Intake Total 240 Output Total 0 Balance 240 Weight 74.1 kg Exam: GENERAL: well-nourished and in no acute distress. Alert and oriented x3. Slight diaphoresis noted HEAD: Atraumatic, normocephalic. EYES: Pupils equal round and reactive to light, extraocular movements intact, sclera anicteric, conjunctiva are normal. ENT: TMs normal, nares patent, oropharynx clear without exudates. Moist mucous membranes. No oral ulcerations or bleeding gums noted NECK: supple without lymphadenopathy. Trachea is central. No cervical or axillary lymphadenopathy noted. Carotids are 2+, JVD WNL LUNGS: Respiration seems nonlabored, no significant accessory muscle action noted. Breath sounds clear to auscultation bilaterally and equal noted. No wheezes rales or rhonchi noted. No significant dullness noted on percussion. CHEST: Palpation of the chest wall shows no significant chest wall tenderness. 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 ABDOMEN: Soft, no significant tenderness appreciated, normoactive bowel sounds. No guarding, no rebound. No rigidity noted . No masses appreciated. EXTREMITIES: Pedal pulses are 1-2+, no calf tenderness noted. No clubbing or cyanosis. negative pedal edema noted NEUROLOGICAL: Focused neurological exam showed no significant neurologic deficit. Normal speech, no focal weakness appreciated. PSYCH: Normal mood, normal affect. Judgment and insight within normal limits. SKIN: No significant ecchymosis, skin is noted to be warm. MUSCULOSKELETAL EXAM: No significant acute joint swelling noted. Results Laboratory Results: 05/20/18 03:56 05/20/18 03:56 05/20/18 05/20/18 05/20/18 03:56 03:56 03:56 WBC 6.0 RBC 4.20 Hgb 12.3 Hct 37.3 MCV 89 MCH 29.2 MCHC 32.9 RDW 13.7 Plt Count 228 Sodium 141.0 Potassium 4.2 Chloride 111 H Carbon Dioxide 24 Anion Gap 6 BUN 13 Creatinine 0.71 Est GFR ( Amer) > 60 Est GFR (Non-Af Amer) > 60 Glucose 74 L Calcium 9.1 Magnesium 1.6 Triglycerides 172 H Cholesterol 122.90 LDL Cholesterol Direct 54 VLDL Cholesterol 34.4 H HDL Cholesterol 38 L TSH 3.65 05/19/18 05/19/18 05/20/18 21:38 21:38 03:56 Creatine Kinase 30 CK-MB (CK-2) 0.35 0.63 Troponin I < 0.012 < 0.012 NT-Pro-B Natriuret Pep 05/20/18 05/20/18 05/20/18 03:56 03:56 10:26 Creatine Kinase 39 41 CK-MB (CK-2) Troponin I Cancelled NT-Pro-B Natriuret Pep 217 05/20/18 10:26 Creatine Kinase CK-MB (CK-2) 0.69 Troponin I < 0.012 NT-Pro-B Natriuret Pep EKG Comments: Showed sinus rhythm, no acute ST-T wave changes were noted. CTA reviewed, no evidence of pulmonary embolism. No aortic dissection noted. These were reviewed by me. Impressions: Chest X-Ray 05/19/18 15:30 IMPRESSION: NO ACUTE RADIOGRAPHIC FINDING IN THE CHEST. Chest/Abdomen CTA 05/20/18 09:32 IMPRESSION: Obstructive lung disease. No acute pulmonary emboli. Left common carotid origin calcifications, left and right coronary artery calcifications Assessment & Plan - Diagnosis (1) Chest pain Qualifiers: Chest pain type: unspecified Qualified Code(s): R07.9 - Chest pain, unspecified Is this a current diagnosis for this admission?: Yes (2) Benign essential HTN Is this a current diagnosis for this admission?: Yes (3) CAD (coronary artery disease), [place] coronary artery Qualifiers: [place] vs. 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 If for some reason this is not accomplished, will pursue a stress testing. Medical regimen to be optimized. Bradycardia: Exact etiology not clear. Discussed that sleep apnea syndrome can cause bradycardia. Also that she was on some home medication especially Toprol- XL long-acting and also other medications could be causing it. During this hospitalization beta-blockers are on hold. Hypothyroidism: Have started patient on Synthroid at 100 mcg daily. Hypertension: Blood pressure under reasonable control. Beta-blockers, PATRICIA inhibitor/ARB preferred. Beta-blockers however on hold because of bradycardia. Diabetes: Recommend good control of blood sugar. However should avoid any hypoglycemia and hyperglycemia. Patient being expertly managed by primary care M.D/hospitalist Hyperlipidemia: LDL goal is less than 70. Recommend statin therapy at least intermediate or high dose, of high potency status. Periodic lipid panel and liver panel is indicated. Patient to report any significant muscle discomfort or other side effects. History of esophageal reflux and stricture: Patient was switched over to Protonix IV now and every 12. Tobacco abuse: Patient has been advised to quit smoking. - Time Time with patient: Greater than 35 minutes - 2D echo results reviewed with the patient. Management plans reviewed with the patient. Hospitalist to arrange for transfer at patient request and also possible need for heart catheterization and pacemaker placement. If patient for some reason stays back , will consider is nuclear stress test for tomorrow morning especially if patient remains stable. More than 50% of the time spent coordinating care, discussing management plans with involved caregivers. Management plans discussed with involved personnels. Medical decision making was of moderate to high complexity, patient's has multiple comorbidities. Medications reviewed and adjusted accordingly: Yes
--- NOTE | 2018-05-20 21:43 | PDOC DISCHARGE SUMMARY ---
General - Admit/Disc Date/PCP Admission Date/Primary Care Provider: 05/19/18 17:21 Discharge Date: 05/20/18 - Discharge Diagnosis (1) Benign essential HTN Is this a current diagnosis for this admission?: Yes Summary: Continued current home medications (2) HLD (hyperlipidemia) Is this a current diagnosis for this admission?: Yes Summary: Continued current home medications (3) DM II (diabetes mellitus, type II), controlled Is this a current diagnosis for this admission?: Yes Summary: Continued current home medications (4) Smoker Is this a current diagnosis for this admission?: Yes Summary: Encourage smoking cessation and provided counseling. (5) History of esophageal stricture Is this a current diagnosis for this admission?: Yes Summary: Continued current home medications (6) CAD (coronary artery disease), [place] coronary artery Is this a current diagnosis for this admission?: Yes Summary: Continued current home medications. Cardiac enzymes were negative. Revealed occasional brief episodes of bradycardia with lowest heart rate recorded at 39. She remained free of angina throughout her hospital course but did have her chronic upper chest discomfort related to her esophageal stricture. (7) Chest pain Is this a current diagnosis for this admission?: Yes Summary: Patient continued to have chest pain related to her upper esophageal stricture but she had no further angina-like syndrome or symptoms. - Additional Information Resuscitation Status: Full Code Discharge Diet: Cardiac Discharge Activity: Activity As Tolerated Home Medications: Albuterol Sulfate [Proair HFA] 2 puff IH Q6HP PRN 05/19/18 Aspirin [Aspirin EC] 81 mg PO DAILY 05/19/18 Budesonide/Formoterol Fumarate [Symbicort 160-4.5 Mcg Inhaler] 2 puff IH Q12 01/29 Cholecalciferol (Vitamin D3) [Vitamin D3] 4,000 unit PO DAILY 05/19/18 Escitalopram Oxalate 10 mg PO QHS 05/19/18 Esomeprazole Magnesium 40 mg PO BID 05/19/18 Fluticasone Propionate [Flonase Nasal [place] 50 Mcg/[place] 16 gm] 2 sprays NAREB DAILY 05/19/18 Glimepiride 4 mg PO DAILY 05/19/18 Isosorbide Mononitrate [Ismo 20 Mg Tablet] 20 mg PO Q12 05/19/18 Levothyroxine Sodium 88 mcg PO Q6AM 05/19/18 Lorazepam 1 mg PO TID 05/19/18 Metoprolol Succinate 50 mg PO DAILY 05/19/18 Pyridostigmine Amo 60 mg PO TID 05/19/18 Ranitidine HCl 300 mg PO QHS 05/19/18 Rosuvastatin Calcium 40 mg PO QHS 05/19/18 Sucralfate [Carafate 1 gm Tablet] 2 gm PO BID 05/19/18 Azelastine HCl [Azelastine HCl] 1 spray NAREB BID 05/20/18 Furosemide [Lasix 40 mg Tablet] 40 mg PO QAMP PRN 05/20/18 Insulin Glargine,Hum.rec.anlog [Lantus Solostar] 46 unit SQ QHS 05/20/18 Insulin Lispro [Humalog Kwikpen] 10 unit SQ TID 05/20/18 Linaclotide [Linzess] 290 mcg PO Q6AM 05/20/18 Magnesium Oxide [Mag-Ox 400 mg Tablet] 800 mg PO QHS 05/20/18 History of Present Illness Patient complains of: Chest pain History of Present Illness: JENNIFER ANDRADE is a 67 year old female who presented to the emergency room with a history of chest pain beginning just a few minutes prior to her arrival. She states that she was playing find a hidden object on her computer when she suddenly developed a severe, crushing, substernal, chest pain without radiation but accompanied by nausea diaphoresis and dyspnea while at rest. The pain remained constant and she subsequently called the EMS to bring her to the hospital. En route she was given nitroglycerin 3 and she chewed 4 baby aspirin , which provided some relief of her discomfort. She did not identify any other aggravating or alleviating factors. She denies having prior similar episodes but does have a history of chronic dysphagia secondary to esophageal stricturing. She also gives a history of hypertension, hyperlipidemia, coronary artery disease, and diabetes. She has a family history strongly positive for coronary artery disease. 05/20/18: This morning Jennifer acknowledges that she has had no further angina type pain but she continues to have her chronic pain in her upper chest that she has frequently with her esophageal stricture. She had an episode of bradycardia last night with heart rate dropping to 39 and she felt that this was the reason why she should be transferred to her tin tie machine operator automatic at [facility]. I discussed with her the fact that a brief period of bradycardia is not a reason for transfer from one hospital to another and that in fact she had not met admission criteria for her stay here. I explained that I do not feel that she would be accepted in transfer as she would most likely not meet admission requirements at [facility]. I have asked her to see her tin tie machine operator automatic as soon as possible on an outpatient basis for further evaluation. Hospital Course Hospital Course: JENNIFER ANDRADE is a 67 year old female who presented to the emergency room with a history of chest pain beginning just a few minutes prior to her arrival. She states that she was playing find a hidden object on her computer when she suddenly developed a severe, crushing, substernal, chest pain without radiation but accompanied by nausea diaphoresis and dyspnea while at rest. The pain remained constant and she subsequently called the EMS to bring her to the hospital. En route she was given nitroglycerin 3 and she chewed 4 baby aspirin , which provided some relief of her discomfort. She was admitted observation status after a negative workup in the emergency room. She had negative serial troponins and no changes significant for cardiac ischemia or injury on her EKGs. A CTA of the chest was also negative for pulmonary emboli. With these findings and no continued pain patient was discharged home in improved and stable condition with recommendation to follow-up with her tin tie machine operator automatic as soon as possible. Physical Exam Vital Signs: Temp Pulse Resp BP Pulse Ox 98.2 F 47 L 17 136/47 H 98 05/20/18 12:59 05/20/18 12:59 05/20/18 12:59 05/20/18 12:59 05/20/18 12:59 Intake & Output 05/19/18 05/20/18 05/21/18 06:59 06:59 06:59 Intake Total 240 Output Total 0 Balance 240 Weight 74.1 kg General appearance: PRESENT: no acute distress, cooperative Head exam: PRESENT: atraumatic, normocephalic Eye exam: PRESENT: conjunctiva pink. ABSENT: nystagmus, scleral icterus Ear exam: PRESENT: normal external ear exam. ABSENT: bleeding Mouth exam: PRESENT: moist, neck supple Neck exam: ABSENT: JVD, tracheal deviation Respiratory exam: PRESENT: clear to auscultation daniel, symmetrical, unlabored Cardiovascular exam: PRESENT: RRR. ABSENT: clicks, diastolic murmur, gallop, rubs, systolic murmur Vascular exam: PRESENT: normal capillary refill. ABSENT: pallor GI/Abdominal exam: PRESENT: soft. ABSENT: tenderness Extremities exam: ABSENT: joint swelling, pedal edema Musculoskeletal exam: PRESENT: full ROM, normal inspection Neurological exam: PRESENT: alert, awake, oriented to person, oriented to place , oriented to time, oriented to situation, CN II-XII grossly intact. ABSENT: motor sensory deficit Psychiatric exam: PRESENT: appropriate affect, normal mood Skin exam: ABSENT: jaundice, rash, urticaria Results Laboratory Results: 05/20/18 03:56 05/20/18 03:56 05/20/18 05/20/18 05/20/18 03:56 03:56 03:56 WBC 6.0 RBC 4.20 Hgb 12.3 Hct 37.3 MCV 89 MCH 29.2 MCHC 32.9 RDW 13.7 Plt Count 228 Sodium 141.0 Potassium 4.2 Chloride 111 H Carbon Dioxide 24 Anion Gap 6 BUN 13 Creatinine 0.71 Est GFR ( Amer) > 60 Est GFR (Non-Af Amer) > 60 Glucose 74 L Calcium 9.1 Magnesium 1.6 Triglycerides 172 H Cholesterol 122.90 LDL Cholesterol Direct 54 VLDL Cholesterol 34.4 H HDL Cholesterol 38 L TSH 3.65 05/19/18 05/19/18 05/20/18 21:38 21:38 03:56 Creatine Kinase 30 CK-MB (CK-2) 0.35 0.63 Troponin I < 0.012 < 0.012 NT-Pro-B Natriuret Pep 05/20/18 05/20/18 05/20/18 03:56 03:56 10:26 Creatine Kinase 39 41 CK-MB (CK-2) Troponin I Cancelled NT-Pro-B Natriuret Pep 217 05/20/18 10:26 Creatine Kinase CK-MB (CK-2) 0.69 Troponin I < 0.012 NT-Pro-B Natriuret Pep EKG Comments: Sinus bradycardia noted. No evidence for ischemic injury. Impressions: Chest X-Ray 05/19/18 15:30 IMPRESSION: NO ACUTE RADIOGRAPHIC FINDING IN THE CHEST. Chest/Abdomen CTA 05/20/18 09:32 IMPRESSION: Obstructive lung disease. No acute pulmonary emboli. Left common carotid origin calcifications, left and right coronary artery calcifications Qualifiers - * PATIENT BEING DISCHARGED WITH ANY OF THE FOLLOWING DIAGNOSIS: No Plan Time Spent: Greater than 30 Minutes
[2018-05-20] MEDS ORDERED: ISOSORBIDE MONONITRATE 20 MG TABLET PO SCH (22:00)
[2018-05-20] MEDS ORDERED: BUDESONIDE/FORMOTEROL 160-4.5 MCG 60 PUFF/6 GM MDI IH SCH (22:00)
[2018-05-20] MEDS ORDERED: ATORVASTATIN CALCIUM 80 MG TABLET PO SCH (22:00)
[2018-05-20] MEDS ORDERED: ESCITALOPRAM OXALATE 10 MG TABLET PO SCH (22:00)
[2018-05-20] MEDS ORDERED: FAMOTIDINE 20 MG TABLET PO SCH (22:00)
[2018-05-20] MEDS ORDERED: INSULIN GLARGINE,HUM.REC.ANLOG 300 UNIT/3 ML INSULN.PEN SUBCUT SCH (22:00)
[2018-05-20] MEDS ORDERED: (PENDING PHARMACY ID) (Ranitidine Hcl [Ranitidine Hcl] 300 MG) PO SCH (22:00)
[2018-05-20] MEDS ORDERED: (PENDING PHARMACY ID) (Rosuvastatin Calcium [Rosuvastatin Calcium] 40 MG) PO SCH (22:00)
[2018-05-20] MEDS ORDERED: MAGNESIUM OXIDE 400 MG TABLET PO SCH (22:00)
[2018-05-21] MEDS ORDERED: LEVOTHYROXINE SODIUM 0.088 MG TABLET PO SCH (06:00)
[2018-05-21] MEDS ORDERED: (PENDING PHARMACY ID) (Cholecalciferol (Vitamin D3) [Vitamin D3] 4,000 UNIT) PO SCH (10:00)
[2018-05-21] MEDS ORDERED: ASPIRIN 81 MG TABLET, ENT COATED PO SCH (10:00)
[2018-05-21] MEDS ORDERED: GLIMEPIRIDE 4 MG TABLET PO SCH (10:00)
[2018-05-21] MEDS ORDERED: FLUTICASONE NASAL SPRAY 50 MCG/SPRY 120 SPRAY/16 GM NAREB SCH (10:00)
[2018-05-21] MEDS ORDERED: CHOLECALCIFEROL (D3) 1,000 UNIT TABLET PO SCH (10:00)
[2018-05-21] MEDS ORDERED: METOPROLOL SUCCINATE 50 MG TAB.SR.24H PO SCH (10:00)
[2018-05-21 13:52] LABS: PATH REVIEW PATHOLOGIST REVIEWED
== END 2018-05-20 13:29 | disposition home or self-care (01) | DRG 392 ==
LOC: ER 15:19 → EH 17:21 → 3N 21:22
PROVIDERS: ADMIT Internal Medicine; ATTEND Internal Medicine
DX: K22.2 Esophageal obstruction (principal); I10 Essential (primary) hypertension; I25.10 Atherosclerotic heart disease of native coronary artery without angina pectoris; E11.9 Type 2 diabetes mellitus without complications; E78.00 Pure hypercholesterolemia, unspecified; J44.9 Chronic obstructive pulmonary disease, unspecified; R13.10 Dysphagia, unspecified; F17.210 Nicotine dependence, cigarettes, uncomplicated; K21.9 Gastro-esophageal reflux disease without esophagitis; E03.9 Hypothyroidism, unspecified; K44.9 Diaphragmatic hernia without obstruction or gangrene; Z79.899 Other long term (current) drug therapy; Z79.4 Long term (current) use of insulin; Z79.82 Long term (current) use of aspirin; Z88.6 Allergy status to analgesic agent; Z88.2 Allergy status to sulfonamides; Z88.8 Allergy status to other drugs, medicaments and biological substances; Z82.49 Family history of ischemic heart disease and other diseases of the circulatory system; Z83.3 Family history of diabetes mellitus
CPT/HCPCS: 36415; 71045; 71275; 80048; 80053; 80061; 82550; 82553; 82962; 83036; 83690; 83735; 83880; 84443; 84484; 85025; 85027; 93005; 93010; 93306; 99285; J1170; J1644; J1815; J1885; J3490; S0164